=== PATIENT | female | born 1935 | race Asian ===

== ENCOUNTER 2020-03-22 11:43 | Inpatient (IN) | payer OTHER, SELFPAY ==
[~2020-03-22] VITALS: Ht 147.3 cm; Wt 49.9 kg
[2020-03-22 12:58] LABS: BASOPHIL % 0 % (0-2); PLATELET COUNT 314 x10^3mcL (130-400); RED CELL DISTRIBUTION WIDTH 14.3 % (11.5-14.5)
[2020-03-22 13:19] LABS: CALCIUM 8.5 mg/dL (8.5-10.1); CARBON DIOXIDE 22.3 mmol/L (21-32); CHLORIDE SERUM 97 mmol/L (98-107); CREATININE SERUM 1.3 mg/dL (0.6-1.0); GLUCOSE SERUM 142 mg/dL (74-106); POTASSIUM SERUM 3.7 mmol/L (3.5-5.1); SODIUM SERUM 133 mmol/L (136-145)
[2020-03-22 13:24] LABS: ALKALINE PHOSPHATASE 46 U/L (46-116); ALT/SGPT 25 U/L (14-59); AST/SGOT 43 U/L (15-37); BILIRUBIN TOTAL 0.5 mg/dL (0.20-1.00); C REACTIVE PROTEIN 9.2 mg/dL (<=0.9); LACTIC DEHYDROGENASE (LDH) 206 U/L (100-190); TOTAL PROTEIN, SERUM 6.6 g/dL (6.4-8.2)
[2020-03-22 13:26] LABS: ALBUMIN 2.7 g/dL (3.4-5.0)
[2020-03-22 14:14] LABS: microscopic required? YES; urine erythrocyte 3+ (NEGATIVE)
[2020-03-22] MEDS ORDERED: ROBAFEN DM COU473 ML PO (15:29)
[2020-03-22] MEDS ORDERED: LEVAQUIN500 M1 PO (15:31)
[2020-03-22] MEDS ORDERED: ZEGERID 40 MG1 EACH PO (15:32)
[2020-03-22 16:16] LABS: CHOLESTEROL/HDL RATIO 2.7; MAGNESIUM 1.9 mg/dL (1.8-2.4); PHOSPHOROUS 4.1 mg/dL (2.5-4.9)
[2020-03-22 16:50] VITALS: BP 131/57
[2020-03-22 17:20] VITALS: BP 128/51
[2020-03-22 19:52] VITALS: BP 135/58
[2020-03-23 06:09] VITALS: BP 134/47
[2020-03-23 06:47] LABS: BASOPHIL % 0.1 % (0-2); PLATELET COUNT 278 x10^3mcL (130-400)
[2020-03-23 06:53] LABS: RED CELL DISTRIBUTION WIDTH 14.6 % (11.5-14.5)
[2020-03-23 07:05] LABS: CALCIUM 8.3 mg/dL (8.5-10.1); CARBON DIOXIDE 26.1 mmol/L (21-32); CHLORIDE SERUM 103 mmol/L (98-107); CREATININE SERUM 0.7 mg/dL (0.6-1.0); GLUCOSE SERUM 131 mg/dL (74-106); POTASSIUM SERUM 3.4 mmol/L (3.5-5.1); SODIUM SERUM 137 mmol/L (136-145)
[2020-03-23 08:46] VITALS: BP 137/58
[2020-03-23 12:36] VITALS: BP 147/55
[2020-03-23 16:18] VITALS: BP 116/68
[2020-03-23 19:11] VITALS: Ht 147.3 cm; Wt 49.9 kg
[2020-03-23 21:00] VITALS: BP 133/58
[2020-03-24 04:52] VITALS: BP 124/42
[2020-03-24 07:35] VITALS: BP 126/71
[2020-03-24 07:46] LABS: PLATELET COUNT 253 x10^3mcL (130-400); RED CELL DISTRIBUTION WIDTH 14.4 % (11.5-14.5)
[2020-03-24 08:09] LABS: CALCIUM 8.3 mg/dL (8.5-10.1); CARBON DIOXIDE 25.1 mmol/L (21-32); CHLORIDE SERUM 103 mmol/L (98-107); CREATININE SERUM 0.6 mg/dL (0.6-1.0); GLUCOSE SERUM 101 mg/dL (74-106); POTASSIUM SERUM 3.1 mmol/L (3.5-5.1); SODIUM SERUM 137 mmol/L (136-145)
[2020-03-24 08:14] LABS: BASOPHIL % 0 % (0-2)
[2020-03-24 13:30] VITALS: BP 132/69
[2020-03-24 17:30] VITALS: BP 153/61
[2020-03-24 19:53] VITALS: BP 116/74
[2020-03-25 05:40] VITALS: BP 139/54
[2020-03-25 06:36] LABS: CALCIUM 8.4 mg/dL (8.5-10.1); CARBON DIOXIDE 25.1 mmol/L (21-32); CHLORIDE SERUM 101 mmol/L (98-107); CREATININE SERUM 0.6 mg/dL (0.6-1.0); GLUCOSE SERUM 129 mg/dL (74-106); SODIUM SERUM 134 mmol/L (136-145)
[2020-03-25 06:41] LABS: BASOPHIL % 0.1 % (0-2); PLATELET COUNT 262 x10^3mcL (130-400); RED CELL DISTRIBUTION WIDTH 14.1 % (11.5-14.5)
[2020-03-25 07:02] LABS: POTASSIUM SERUM 2.9 mmol/L (3.5-5.1)
[2020-03-25 09:06] VITALS: BP 120/44
[2020-03-25 12:18] LABS: CALCIUM 7.8 mg/dL (8.5-10.1); CARBON DIOXIDE 27.7 mmol/L (21-32); CHLORIDE SERUM 103 mmol/L (98-107); CREATININE SERUM 0.6 mg/dL (0.6-1.0); GLUCOSE SERUM 105 mg/dL (74-106); POTASSIUM SERUM 3.6 mmol/L (3.5-5.1); SODIUM SERUM 136 mmol/L (136-145)
[2020-03-25 14:30] VITALS: BP 133/55
[2020-03-25 17:07] VITALS: BP 141/56
[2020-03-25 21:22] VITALS: BP 128/57
[2020-03-26 05:37] VITALS: BP 127/42
[2020-03-26 07:09] LABS: CALCIUM 8.1 mg/dL (8.5-10.1); CARBON DIOXIDE 26.5 mmol/L (21-32); CHLORIDE SERUM 102 mmol/L (98-107); CREATININE SERUM 0.5 mg/dL (0.6-1.0); GLUCOSE SERUM 125 mg/dL (74-106); SODIUM SERUM 136 mmol/L (136-145)
[2020-03-26 07:14] LABS: POTASSIUM SERUM 2.8 mmol/L (3.5-5.1)
[2020-03-26 07:36] LABS: BASOPHIL % 0.1 % (0-2); PLATELET COUNT 248 x10^3mcL (130-400); RED CELL DISTRIBUTION WIDTH 14.5 % (11.5-14.5)
[2020-03-26 08:53] VITALS: BP 136/43
[2020-03-26] MEDS ORDERED: AUG500 PO (09:28)
[2020-03-26 16:01] LABS: CALCIUM 8.1 mg/dL (8.5-10.1); CARBON DIOXIDE 23.6 mmol/L (21-32); CHLORIDE SERUM 104 mmol/L (98-107); CREATININE SERUM 0.5 mg/dL (0.6-1.0); GLUCOSE SERUM 121 mg/dL (74-106); SODIUM SERUM 135 mmol/L (136-145)
[2020-03-26 17:27] VITALS: BP 157/62
[2020-03-26 18:30] VITALS: BP 142/69
[2020-03-26 21:42] VITALS: BP 160/64
== END 2020-03-26 21:19 | disposition left against medical advice (07) | DRG 871 ==
LOC: ED 11:43 → DU 14:45
PROVIDERS: Emergency Medicine; Internal Medicine; ADMIT Family Medicine; ATTEND Family Medicine
DX: A41.9 Sepsis, unspecified organism (principal); J18.9 Pneumonia, unspecified organism; R65.21 Severe sepsis with septic shock; Z20.828 Contact with and (suspected) exposure to other viral communicable diseases; G30.9 Alzheimer's disease, unspecified; Z53.29 Procedure and treatment not carried out because of patient's decision for other reasons; F02.80 Dementia in other diseases classified elsewhere, unspecified severity, without behavioral disturbance, psychotic disturbance, mood disturbance, and anxiety; R13.10 Dysphagia, unspecified; Z74.01 Bed confinement status; Z79.899 Other long term (current) drug therapy
CPT/HCPCS: 36600; 83880; 85378; 87804; 92526-GN; 92610-GN; G0378; J0456; J0696; J1650; J3480; J7030; J7042; J7060; Q0092; U0003-CS